=== PATIENT | male | born 1995 | race Hispanic/Latino ===

== ENCOUNTER 2023-09-17 07:05 | Emergency (ER) | payer SELFPAY ==
[2023-09-17 07:12] VITALS: BP 132/81; PULSE 85; RESP 15; TEMP 37.1; O2SAT 98
--- NOTE | 2023-09-17 07:47 | ED.EAR ---
HPI - Ear Problem General Chief complaint: Ear Stated complaint: ringing in right ear Time Seen by Provider: 09/17/23 07:15 History of Present Illness HPI Narrative: 27-year-old male presenting emergency department for evaluation of multiple complaints including 3 years for the last 2 days and some lower back pain this been going on for the last few years. Patient denies any pain in the ear but does report ringing. Patient denies any change in medications. Patient denies any recent coughs colds or fevers. Patient denies any falls or injuries as the cause of lower back pain. Patient is not diabetic and denies any associated numbness weakness difficulty starting urination or loss of bowel control. Related Data Allergies Allergy/AdvReac Type Severity Reaction Status Date / Time No Known Allergies Allergy Verified 09/17/23 07:06 Review of Systems Review of Systems: All systems reviewed & are unremarkable except as noted in HPI and below Exam Narrative: APPEARANCE: Well appearing, no pain, no distress, well-nourished. HEAD: normocephalic, atraumatic. EYES: PERRLA/EOMI, conjunctivae clear. NOSE: Normal no drainage EARS: bilateral cerumen, Right TM erythema THROAT: Pharynx clear, no exudate. NECK: Supple. No adenopathy, no masses. RESPIRATORY: Airway patent, respirations nonlabored. Clear to auscultation bilaterally, no rales, rhonchi, wheezing. CARDIOVASCULAR: Regular rate and rhythm without murmurs rubs or gallops. ABDOMINAL: Soft, nontender, nondistended, normal bowel sounds MUSCULOSKELETAL: Moves all extremities. Strength/ROM intact, No edema, No calf tenderness. NEURO: Alert. Cranial nerves II through XII intact. grossly intact SKIN: Warm, dry. Normal Color Course Course Emergency Course: 27-year-old male presented the ED for evaluation of right ear ringing. Ear had a lot of cerumen impaction this was cleared and patient was started on antibiotics for suspected otitis media. Patient was updated on the results of the exam Vital Signs Vital signs: Vital Signs Temperature 98.8 F 09/17/23 07:12 Pulse Rate 85 09/17/23 07:12 Respiratory Rate 15 09/17/23 07:12 Blood Pressure 132/81 09/17/23 07:12 Pulse Oximetry 98 09/17/23 07:12 Oxygen Delivery Room Air 09/17/23 07:12 Temperature 98 F 09/17/23 10:17 Pulse Rate 71 09/17/23 10:17 Respiratory Rate 18 09/17/23 10:17 Blood Pressure 120/82 09/17/23 10:17 Pulse Oximetry 100 09/17/23 10:17 Oxygen Delivery Room Air 09/17/23 07:12 Medical Decision Making Differential Diagnosis Differential Diagnosis: cerumen impaction, otitis externa, otitis media Vital Signs Vital Signs: Vital Signs Temperature 98.8 F 09/17/23 07:12 Pulse Rate 85 09/17/23 07:12 Respiratory Rate 15 09/17/23 07:12 Blood Pressure 132/81 09/17/23 07:12 Pulse Oximetry 98 09/17/23 07:12 Oxygen Delivery Room Air 09/17/23 07:12 Temperature 98 F 09/17/23 10:17 Pulse Rate 71 09/17/23 10:17 Respiratory Rate 18 09/17/23 10:17 Blood Pressure 120/82 09/17/23 10:17 Pulse Oximetry 100 09/17/23 10:17 Oxygen Delivery Room Air 09/17/23 07:12 Lab Data Labs: Lab Results 09/17/23 Range/Units 08:57 Urine Color Yellow (Yellow) Urine Appearance Clear (Clear) Urine pH 5.5 (5.0-9.0) Ur Specific [place] 1.021 (1.001-1.035) Urine Protein Negative (Negative) mg/dL Urine Glucose (UA) Negative (Negative) mg/dL Urine Ketones Negative (Negative) mg/dL Ur Blood (Man) Negative (Negative) Urine Nitrate Negative (Negative) Urine Bilirubin Negative (Negative) Urine Urobilinogen 0.2 (<2.0) mg/dL Leukocyte Esterase Rfl Negative (Negative) JUNIOR/UL Discharge Plan Discharge Clinical Impression: Otitis media Patient Disposition: Home, Self-Care Condition: Stable Instructions: Antibiotic Form, Earache (ED) Additional Instructions: antibiotic as directed un
[2023-09-17 09:04] LABS: Appearance Urine Clear (Clear); Bilirubin Urine Negative (Negative); Blood Urine Negative (Negative); Color Urine Yellow (Yellow); Glucose Urine UA Negative (Negative); Ketones Urine Negative (Negative); Leukocyte Esterase Ur Negative LEU/UL (Negative); Nitrate Urine Negative (Negative); Protein Urine Negative (Negative); Specific Grav Ur 1.021 (1.001-1.035); Urobilinogen Urine 0.2 mg/dL (<2.0); pH Urine 5.5 (5.0-9.0)
[2023-09-17 09:19] LABS: Add Urine Microscopic? NO
[2023-09-17 10:17] VITALS: BP 120/82; PULSE 71; RESP 18; TEMP 36.6; O2SAT 100
== END 2023-09-17 10:19 | disposition home or self-care (01) ==
PROVIDERS: Emergency Provider Emergency Medicine
DX: H66.91 Otitis media, unspecified, right ear (principal)
CPT/HCPCS: 81003; 99283